=== PATIENT | male | born 2000 | race Two or more races ===

== ENCOUNTER 2022-03-21 00:33 | Emergency (ER) | payer MEDICAID ==
[~2022-03-21] VITALS: Ht 177.8 cm; Wt 63.6 kg
[2022-03-21 00:46] VITALS: BP 116/66
[2022-03-21] MEDS ORDERED: OLANZapine 5mg rapidly disint. tablet PO ONE (01:20)
[2022-03-21] MEDS ORDERED: QUET200T PO (01:23)
[2022-03-21] MEDS ORDERED: LITH300T3 PO (01:23)
== END 2022-03-21 01:52 | disposition home or self-care (01) ==
LOC: ER 00:34
DX: F29 Unspecified psychosis not due to a substance or known physiological condition (principal); Z88.6 Allergy status to analgesic agent
CPT/HCPCS: 99283

== ENCOUNTER 2022-03-25 12:38 | Emergency (ER) | payer MEDICAID ==
[~2022-03-25] VITALS: Ht 177.8 cm; Wt 72.7 kg
[~2022-03-25 12:38] MED LIST: LITH300T3 PO; QUET200T PO
[2022-03-25 12:45] VITALS: BP 124/79
== END 2022-03-25 14:11 | disposition home or self-care (01) ==
LOC: ER 12:39
DX: M79.672 Pain in left foot (principal); Z53.21 Procedure and treatment not carried out due to patient leaving prior to being seen by health care provider

== ENCOUNTER 2022-04-12 12:28 | Emergency (ER) | payer MEDICAID ==
[~2022-04-12] VITALS: Ht 177.8 cm; Wt 59.1 kg
[2022-04-12 13:13] VITALS: BP 113/75
--- NOTE | 2022-04-12 13:28 | NUR ---
TITO CINTRON CHARGE AWARE OF PT, PT TO SIT IN LOBBY AND WAIT FOR ROOM.
== END 2022-04-12 18:50 | disposition left against medical advice (07) ==
LOC: ER 12:28
DX: Z04.6 Encounter for general psychiatric examination, requested by authority (principal); Z53.21 Procedure and treatment not carried out due to patient leaving prior to being seen by health care provider

== ENCOUNTER 2022-04-19 18:01 | Emergency (ER) | payer SELFPAY ==
[~2022-04-19] VITALS: Ht 177.8 cm; Wt 63.6 kg
[2022-04-19 18:08] VITALS: BP 127/75
== END 2022-04-19 23:57 | disposition left against medical advice (07) ==
LOC: ER 18:03
DX: R45.851 Suicidal ideations (principal); Z53.21 Procedure and treatment not carried out due to patient leaving prior to being seen by health care provider

== ENCOUNTER 2022-05-17 18:58 | Emergency (ER) | payer MEDICAID ==
[~2022-05-17] VITALS: Ht 177.8 cm; Wt 68.2 kg
[2022-05-17 19:19] VITALS: BP 130/76
== END 2022-05-17 20:18 | disposition home or self-care (01) ==
LOC: ER 18:59
DX: F15.10 Other stimulant abuse, uncomplicated (principal); Z00.8 Encounter for other general examination; Z88.6 Allergy status to analgesic agent; Z79.899 Other long term (current) drug therapy
CPT/HCPCS: 99281

== ENCOUNTER 2023-06-29 20:24 | Emergency (ER) | payer OTHER ==
[~2023-06-29] VITALS: Ht 177.8 cm; Wt 63.6 kg
[2023-06-29 20:46] VITALS: BP 101/61; PULSE 90; RESP 16; TEMP 98.7; O2SAT 98
--- NOTE | 2023-06-29 21:00 | NUR ---
ABRASIONS CLEANED ON NOSE AND UNDER RIGHT EYE. NEOSPORIN APPLIED.
== END 2023-06-29 21:01 | disposition home or self-care (01) ==
LOC: ER 20:24 → EEVIPCON 20:24 → ER 21:01
DX: S00.81XA Abrasion of other part of head, initial encounter (principal); W18.39XA Other fall on same level, initial encounter; Y93.89 Activity, other specified; Y92.89 Other specified places as the place of occurrence of the external cause; Y99.8 Other external cause status
CPT/HCPCS: 99284

== ENCOUNTER 2023-07-12 05:11 | Emergency (ER) | payer MEDICAID, OTHER ==
[~2023-07-12] VITALS: Ht 175.3 cm; Wt 65.9 kg
[2023-07-12 05:15] VITALS: TEMP 98.1
[2023-07-12 06:15] LABS: ALANINE AMINOTRANSFERASE 35 U/L (12-78); ALBUMIN/GLOBULIN RATIO 0.9 (1.1-1.5); ALKALINE PHOSPHATASE 75 IU/L (46-116); ANION GAP 9 (8-16); ASPARTATE AMINO TRANSFERASE 27 U/L (10-37); BILIRUBIN,TOTAL 0.6 MG/DL (0.1-1.0); BLOOD UREA NITROGEN 22 MG/DL (7-18); BUN/CREATININE RATIO 20.4 (10.0-20.0); CALCIUM 8.8 MG/DL (8.5-10.1); CHLORIDE 99 MMOL/L (99-107); CREATININE 1.08 MG/DL (0.60-1.10); GLUCOSE 104 MG/DL (70-104); POTASSIUM 3.4 MMOL/L (3.5-5.1); SODIUM 136 MMOL/L (135-145); TOTAL CARBON DIOXIDE 28.5 MMOL/L (24-32); TOTAL PROTEIN 8.7 G/DL (6.4-8.2); eCRCL 99 ML/MIN; eGFR 85 ML/MIN
[2023-07-12 06:23] LABS: ETHANOL < 10 MG/DL (<10); SALICYLATE 1.3 MG/DL (4.0-20.0); THYROID STIMULATING HORMONE 6.38 ulU/ml (0.34-4.50)
[2023-07-12 06:27] LABS: BASOPHILS % (AUTO) 0.4 % (0-1); EOSINOPHILS # (AUTO) 0.1 X10'3 (0-0.9); EOSINOPHILS % (AUTO) 0.7 % (0-6); HEMATOCRIT 35.8 % (42.0-52.0); HEMOGLOBIN 11.7 g/dl (14.0-17.9); LYMPHOCYTES % (AUTO) 18.3 % (21-51); MEAN CORPUSCULAR HEMOGLOBIN 29.5 PG (27.0-31.0); MEAN CORPUSCULAR HGB CONC 32.7 g/dL (33.0-36.5); MEAN PLATELET VOLUME 8.1 FL (7.4-10.4); MONOCYTES # (AUTO) 0.9 X10'3 (0-0.9); MONOCYTES % (AUTO) 7.8 % (2-12); NEUTROPHILS # (AUTO) 8.1 X10'3 (1.8-7.7); NEUTROPHILS % (AUTO) 72.8 % (42-75); PLATELET COUNT 247 X10'3 (140-440); RED BLOOD COUNT 3.98 X10'6 (4.70-6.10); RED CELL DISTRIBUTION WIDTH 16.2 % (11.5-14.5); WHITE BLOOD COUNT 11.2 X10'3 (4.5-11.0)
[2023-07-12 06:39] LABS: BILIRUBIN,URINE NEGATIVE (Neg); CLARITY,URINE CLEAR (Clear); COLOR,URINE YELLOW (Yellow); GLUCOSE, URINE NEGATIVE (Neg); KETONES,URINE NEGATIVE (Neg); LEUKOCYTE ESTERASE ,URINE NEGATIVE (Neg); NITRITES, URINE NEGATIVE (Neg); OCCULT BLOOD,URINE NEGATIVE (Neg); PROTEIN,URINE 100 mg/dl (Neg); UROBILINOGEN,URINE 0.2 E.U/dL (0.2-1.0)
[2023-07-12 06:40] LABS: ACETAMINOPHEN < 2.0 UG/ML (10-30)
[2023-07-12 06:41] LABS: URINE AMPHETAMINE SCREEN NEGATIVE (Neg); URINE BARBITUATE SCREEN NEGATIVE (Neg); URINE BENZODIAZEPINES SCREEN NEGATIVE (Neg); URINE CANNABINOID SCREEN NEGATIVE (Neg); URINE COCAINE SCREEN NEGATIVE (Neg); URINE METHADONE SCREEN NEGATIVE (Neg); URINE OPIATE SCREEN NEGATIVE (Neg); URINE PHENCYCLIDINE SCREEN NEGATIVE (Neg)
[2023-07-12 06:46] LABS: UA COLLECTION TYPE URINAL
[2023-07-12 06:48] LABS: BACTERIA,URINE NONE SEEN /HPF (Neg); HYALINE CASTS 0-3 /LPF (NEGATIVE); MUCUS STRANDS FEW /LPF (Neg); RBC,URINE NONE SEEN /HPF (0-2); SQUAMOUS EPITHELIAL CELL,UR FEW /LPF (FEW); WBC,URINE 0-4 /HPF (0-4)
[2023-07-12 08:40] LABS: FREE T4 (FREE THYROXINE) 0.79 NG/DL (0.73-1.40)
[2023-07-12 14:37] VITALS: BP 106/60; PULSE 78; RESP 16; O2SAT 99
== END 2023-07-12 14:41 | disposition home or self-care (01) ==
LOC: ER 05:12
DX: T40.412A Poisoning by fentanyl or fentanyl analogs, intentional self-harm, initial encounter (principal); Z20.822 Contact with and (suspected) exposure to COVID-19; F20.9 Schizophrenia, unspecified; Z88.8 Allergy status to other drugs, medicaments and biological substances; Z79.899 Other long term (current) drug therapy; S20.314A Abrasion of middle front wall of thorax, initial encounter; Y92.89 Other specified places as the place of occurrence of the external cause
CPT/HCPCS: 36415; 71045; 80053; 80305; 80320; 80329; 81001; 84439; 84443; 84484; 85025; 87811; 93005; 99285

== ENCOUNTER 2023-08-02 13:41 | Emergency (ER) | payer SELFPAY | END 2023-08-02 15:30 | LOC: ER 13:42 | DX: Z00.8 Encounter for other general examination (principal); F20.9 Schizophrenia, unspecified; Z59.00 Homelessness unspecified; Z79.899 Other long term (current) drug therapy | CPT/HCPCS: 99283 ==

== ENCOUNTER 2023-12-14 21:24 | Emergency (ER) | payer SELFPAY ==
[~2023-12-14] VITALS: Ht 170.2 cm; Wt 65.9 kg
[2023-12-14 22:06] VITALS: BP 134/89; PULSE 110; RESP 18; O2SAT 95
== END 2023-12-14 23:20 ==
LOC: ER 21:25
DX: F19.10 Other psychoactive substance abuse, uncomplicated (principal); J45.909 Unspecified asthma, uncomplicated; Z88.6 Allergy status to analgesic agent; Z79.899 Other long term (current) drug therapy
CPT/HCPCS: 82948; 93005; 99283

== ENCOUNTER 2024-01-03 01:42 | Emergency (ER) | payer MEDICAID ==
[~2024-01-03] VITALS: Ht 182.9 cm; Wt 68.2 kg
[2024-01-03 02:02] VITALS: BP 117/73; PULSE 85; RESP 18; TEMP 98.5; O2SAT 98
== END 2024-01-03 03:05 ==
LOC: ER 01:45
DX: S01.91XA Laceration without foreign body of unspecified part of head, initial encounter (principal); F20.9 Schizophrenia, unspecified; F19.90 Other psychoactive substance use, unspecified, uncomplicated; J45.909 Unspecified asthma, uncomplicated; Z88.8 Allergy status to other drugs, medicaments and biological substances; Z79.899 Other long term (current) drug therapy; W22.8XXA Striking against or struck by other objects, initial encounter; Y93.89 Activity, other specified; Y92.481 Parking lot as the place of occurrence of the external cause; Y99.8 Other external cause status
CPT/HCPCS: 70450; 99284